=== PATIENT | female | born 1990 | race Caucasian/White ===

== ENCOUNTER 2016-09-10 12:03 | Emergency (ER) | payer SELFPAY ==
[~2016-09-10 12:03] MED LIST: BUPROPION XL150 MG PO; LORAZEPAM1 MG PO; METFORMIN PO; PRAZOSIN HCL2 MG PO; PROZAC40 MG PO; RISPERIDONE1 MG PO
== END 2016-09-10 12:23 | disposition home or self-care (01) ==
LOC: SED 12:03
DX: Z76.0 Encounter for issue of repeat prescription (principal); Z79.899 Other long term (current) drug therapy
CPT/HCPCS: 82947; 99282

== ENCOUNTER 2016-10-25 17:56 | Emergency (ER) | payer OTHER ==
[2016-10-25 18:01] LABS: URINE SOURCE CLEAN CATCH
[2016-10-25 18:41] LABS: URINE APPEARANCE CLEAR; URINE BILIRUBIN NEG (NEG); URINE BLOOD NEG (NEG); URINE COLOR YELLOW; URINE GLUCOSE >1000 MG/DL (NEG); URINE KETONE 1+ (NEG); URINE LEUKOCYTE ESTERASE 1+ (NEG); URINE NITRATE NEG (NEG); URINE PROTEIN NEG (NEG); URINE SPECIFIC GRAVITY 1.035 (1.003-1.035); URINE UROBILINOGEN 0.2 MG/DL (NEG)
[2016-10-25 18:44] LABS: CULTURE INDICATED? YES; URBCS1 AUWI 0-2 /[HPF] (0-2); URINE BACTERIA AUWI 2+ (NEGATIVE); URINE SQUAMOUS EPITHELIAL CELL MOD /[HPF]; UWBCS1 AUWI 50-100 (0-5)
[2016-10-28 02:19] LABS: CHLAMYDIA TRACH Not Detected (Not Detected); N GONOR Not Detected (Not Detected)
== END 2016-10-25 19:10 | disposition home or self-care (01) ==
LOC: CFTX 17:56
PROVIDERS: Physician Assistant Medical
DX: N76.0 Acute vaginitis (principal); B96.89 Other specified bacterial agents as the cause of diseases classified elsewhere; E11.9 Type 2 diabetes mellitus without complications; K58.9 Irritable bowel syndrome, unspecified
CPT/HCPCS: 81003; 84703; 87086; 87491; 87591; 87808; 87905; 99284

== ENCOUNTER 2016-11-06 10:46 | Emergency (ER) | payer OTHER ==
[2016-11-06] MEDS ORDERED: INVOKANA100 MG (11:03)
[2016-11-06 11:39] LABS: URINE SOURCE CLEAN CATCH
[2016-11-06 11:43] LABS: URINE APPEARANCE CLEAR; URINE BILIRUBIN NEG (NEG); URINE BLOOD NEG (NEG); URINE COLOR YELLOW; URINE GLUCOSE 300 MG/DL (NORM); URINE KETONE NEG (NEG); URINE LEUKOCYTE ESTERASE 1+ (NEG); URINE NITRATE NEG (NEG); URINE PH 5.5 (5-8); URINE PROTEIN NEG (NEG); URINE SPECIFIC GRAVITY <=1.005 (1.003-1.035); URINE UROBILINOGEN 0.2 MG/DL (NORM)
[2016-11-06 11:50] LABS: MICRO INDICATED? YES
[2016-11-06 11:52] LABS: CULTURE INDICATED? NO; URINE BACTERIA NEG (NEG); URINE MUCUS PRESENT; URINE RBC NEG /[HPF] (0-2); URINE SQUAMOUS EPITHELIAL CELL MODERATE /[HPF]
== END 2016-11-06 12:56 | disposition home or self-care (01) ==
LOC: SED 10:46
PROVIDERS: Nurse Practitioner
DX: N76.0 Acute vaginitis (principal); E11.9 Type 2 diabetes mellitus without complications; Z79.84 Long term (current) use of oral hypoglycemic drugs; Z79.899 Other long term (current) drug therapy
CPT/HCPCS: 81003; 84703; 99283

== ENCOUNTER 2017-01-30 09:50 | Emergency (ER) | payer OTHER ==
[~2017-01-30] VITALS: Ht 167.6 cm; Wt 110.7 kg
[~2017-01-30 09:50] MED LIST changes: +INVOKANA100 MG
[2017-01-30] MEDS ORDERED: DEPAKOTE250 MG (09:55)
[2017-01-30] MEDS ORDERED: GLEEVEC100 MG (09:55)
[2017-01-30] MEDS ORDERED: XANAX0.5 M1 (09:55)
== END 2017-01-30 10:18 | disposition home or self-care (01) ==
LOC: SED 09:50
DX: B02.9 Zoster without complications (principal); E11.9 Type 2 diabetes mellitus without complications
CPT/HCPCS: 99282

== ENCOUNTER 2017-02-24 11:10 | Emergency (ER) | payer OTHER ==
[~2017-02-24 11:10] MED LIST changes: +DEPAKOTE250 MG; +GLEEVEC100 MG; +XANAX0.5 M1
[2017-02-24 12:02] LABS: URINE SOURCE CLEAN CATCH
[2017-02-24 12:06] LABS: BASOPHIL% 0.5 % (0-2.5); EOSINOPHIL# 0.5 X10e3 (0-0.7); EOSINOPHIL% 7.1 % (0.0-7.0); HEMATOCRIT 37.5 % (35.0-45.0); HEMOGLOBIN 12.7 gm/dL (12.0-16.0); LYMPHOCYTE# 1.9 X10e3 (1.0-3.5); LYMPHOCYTE% 25.1 % (17.0-45.0); MEAN CELL VOLUME 89.9 FL (83-96); MEAN CORPUSCULAR HEMOGLOBIN 30.6 PG (28-34); MEAN PLATELET VOLUME 7.8 FL (6.5-11.5); MONOCYTE# 0.6 X10e3 (0-1.0); MONOCYTE% 7.8 % (3.0-12.0); NEUTROPHIL# 4.6 X10e3 (1.5-7.1); NEUTROPHIL% 59.5 % (40-75); PLATELET COUNT 301 X10e3 (140-420); RED BLOOD COUNT 4.17 X10e (3.90-5.30); RED CELL DISTRIBUTION WIDTH 14.6 % (11.0-15.5); WHITE BLOOD COUNT 7.7 X10e3 (4.0-10.5)
[2017-02-24 12:11] LABS: DIFF IND NO
[2017-02-24 12:11] LABS: URINE BILIRUBIN NEG (NEG); URINE BLOOD NEG (NEG); URINE COLOR YELLOW; URINE GLUCOSE 300 MG/DL (NORM); URINE KETONE NEG (NEG); URINE LEUKOCYTE ESTERASE NEG (NEG); URINE NITRATE NEG (NEG); URINE PH 5.5 (5-8); URINE PROTEIN NEG (NEG); URINE UROBILINOGEN 0.2 MG/DL (NORM)
[2017-02-24 12:21] LABS: MICRO INDICATED? NO; URINE APPEARANCE SL HAZY
[2017-02-24 12:26] LABS: ALBUMIN SERUM 4.4 g/dL (3.5-5.0); ALKALINE PHOSPHATASE 61 U/L (32-92); ALT (SGPT) 15 U/L (10-40); AMYLASE 14 U/L (0-46); AST (SGOT) 20 U/L (10-42); BILIRUBIN,TOTAL 0.5 mg/dL (0.2-2.0); BLOOD UREA NITROGEN 10 mg/dL (9-23); BUN/CREATININE RATIO 16.66; CALCIUM SERUM 8.5 mg/dL (8.4-10.2); CARBON DIOXIDE 22 mmol/L (22-31); CHLORIDE 108 mmol/L (100-111); CREATININE SERUM 0.6 mg/dL (0.6-1.4); GLUCOSE FASTING 105 mg/dL (70-110); LIPASE 30 U/L (22-51); POTASSIUM 3.6 mmol/L (3.5-5.1); PROTEIN TOTAL SERUM 6.8 g/dL (6.0-8.3); SODIUM 133 mmol/L (135-145)
[2017-02-24 12:28] LABS: BILIRUBIN, DIRECT <0.1 mg/dL (0.0-0.2); BILIRUBIN,INDIRECT 0.4 mg/dL (0.0-0.9)
== END 2017-02-24 13:05 | disposition home or self-care (01) ==
LOC: SED 11:10
PROVIDERS: Nurse Practitioner
DX: A08.4 Viral intestinal infection, unspecified (principal); E11.9 Type 2 diabetes mellitus without complications; F90.9 Attention-deficit hyperactivity disorder, unspecified type; Z79.899 Other long term (current) drug therapy
CPT/HCPCS: 36415; 80048; 80076; 81003; 82150; 83690; 84703; 85025; 96361; 96374; 96375; 99284; J2270; J2405